=== PATIENT | female | born 1960 | race Caucasian/White ===

== ENCOUNTER 2017-02-26 11:00 | Inpatient (IN) | payer OTHER ==
[2017-01-24 12:31] VITALS: BMI 33.0
--- NOTE | 2017-01-24 13:07 | PAT Medication Instructions ---
Service Date January 24, 2017. Current Home Medication List Alprazolam (Alprazolam Odt), 1 TAB PO HS Cholecalciferol (Vitamin D3), 1 CAP PO HS Ibuprofen (Ibuprofen), 800 MG PO HS Lisinopril/Hctz (Zestoretic 20MG/12.5MG), 2 TAB PO HS Medication Instructions For Your Scheduled Surgery - Check with surgeon for instructions: Ibuprofen (Ibuprofen), 800 MG PO HS - Hold the following medications as scheduled the night before surgery: Lisinopril/Hctz (Zestoretic 20MG/12.5MG), 2 TAB PO HS - Take the following medications as scheduled the night before surgery: Alprazolam (Alprazolam Odt), 1 TAB PO HS Cholecalciferol (Vitamin D3), 1 CAP PO HS If you have any questions please call us at [phone] (Na Boucher PA-C) or [phone] or [phone]
--- NOTE | 2017-01-24 13:49 | DIAGNOSTIC IMAGING REPORT ---
TWO VIEW CHEST CLINICAL HISTORY: Preoperative examination. FINDINGS: PA and lateral chest radiographs are obtained. No prior studies are available for comparison at the time of dictation. The cardiomediastinal silhouette is unremarkable. The lungs and pleural spaces are clear. There is no pneumothorax. The bony thorax appears intact. Degenerative change is seen throughout the thoracic spine. Cholecystectomy clips are identified in the right upper quadrant. IMPRESSION: No active disease in the chest. Electronically signed by: Kashif Gallardo M.D. 01/24/2017 1:47 PM Dictated Date/Time: 01/24/2017 1:47 PM
[2017-01-24 14:34] LABS: BASO % 0.6 %; BASO ABS # 0.03 K/uL (0-0.2); COMPLETE YES; EOS % 3.7 %; HEMATOCRIT 38.3 % (37-47); IG% 0.2 %; LYMPH % 42.5 %; LYMPH ABS # 2.18 K/uL (1.2-3.4); MEAN CELL VOLUME 89.5 fL (80-100); MEAN CORPUSCULAR HEMOGLOBIN 30.8 pg (25-34); MEAN CORPUSCULAR HGB CONC 34.5 g/dl (32-36); MEAN PLATELET VOLUME 10.7 fL (7.4-10.4); MONO % 7.4 %; NEUT % 45.6 %; PLATELET COUNT 295 K/uL (130-400); RED BLOOD COUNT 4.28 M/uL (4.2-5.4); WHITE BLOOD COUNT 5.13 K/uL (4.8-10.8)
[2017-01-24 14:44] LABS: BUN/CREATININE RATIO 24.3 (10-20); CALCIUM 10.5 mg/dl (8.5-10.1); CREATININE 0.99 mg/dl (0.60-1.20); INR 0.9 (0.9-1.1); POTASSIUM 4.2 mmol/L (3.5-5.1)
[2017-01-24 14:46] LABS: MANUAL MICROSCOPIC REQUIRED? NO; REVIEW REQ? NO; URINE APPEARANCE CLEAR (CLEAR); URINE BILIRUBIN NEG (NEG); URINE COLOR YELLOW; URINE EPITHELIAL CELL AUTO >30 /lpf (0-5); URINE NITRITE NEG (NEG); URINE PH 5.5 (4.5-7.5); URINE SPECIFIC GRAVITY 1.011 (1.000-1.030); UROBILINOGEN NEG (NEG); ZZUR CULT IF INDIC CLEAN CATCH NO
[~2017-02-26] VITALS: Ht 160 cm; Wt 84.5 kg
--- NOTE | 2017-02-26 07:07 | History and Physical ---
History & Physical Date Feb 26, 2017. Chief Complaint L HIP PAIN History of Present Illness The patient is a 56 year old female with complaints of GREATER THAN 1 YR L HIP PAIN 04/01. CANNOT TIE SHOES 1 BLOCK WALKING KELLIE.... GROIN TO THIGH LIMPING PAIN W ALL ADLS XRAY CW SEVERE OA OF HIP Additional History Hepatic Disease: No Endocrine Disorder: No Kidney Disease: No Hypertension: Yes Heart Disease: No Bleeding Tendencies: No Infectious Diseases: No Allergies Coded Allergies: Codeine (Verified Allergy, Mild, CHEST PAINS, 01/24/17) Home Medications Scheduled Alprazolam (Alprazolam Odt), 1 TAB PO HS Cholecalciferol (Vitamin D3), 1 CAP PO HS Ibuprofen (Ibuprofen), 800 MG PO HS Lisinopril/Hctz (Zestoretic 20MG/12.5MG), 2 TAB PO HS Physical Examination Skin: warm/dry, no rash Eyes: normal inspection, EOMI, sclerae normal ENT: normal ENT inspection, pharynx normal Head: normocephalic, atraumatic Neck: supple, no adenopathy, trachea midline Respiratory/Chest: lungs clear, normal breath sounds, no respiratory distress Cardiovascular: regular rate, rhythm, no edema, no murmur Abdomen / GI: normal bowel sounds, non tender Back: + pertinent finding (LEGS EQUAL DECREASED ROM FLEX 60 IR 0 PAINFUL ) Neurologic/Psych: no motor/sensory deficits, alert, normal reflexes, oriented x 3 Diagnosis DJD L HIP ASA Classification: ASA Class I Plan of Treatment L SCAR
[~2017-02-26 11:00] MED LIST: ACETAMINOPHEN 500 MG TAB PO SCH; ALPR-413 PO; BUPIVACAINE 0.5 % 5 MG/1 ML PF 10ML VIAL ONE; CEFAZOLIN 2000 MG/60 ML D5W 60 ML IV SCH; CHOL2000 PO; CeleBREX 200 MG CAP PO SCH; DEXAMETHASONE 4 MG TAB PO SCH; FAMOTIDINE 20 MG TAB PO SCH; GABAPENTIN 300 MG CAP PO SCH; IBUP-1105 PO; LACTATED RINGER'S 1000ML 1,000 ML IV SCH; LACTATED RINGER'S 1000ML IV SCH; LISI-787 PO; METOCLOPRAMIDE HCL 10 MG TAB PO SCH; POLYMYXIN B SULFATE 100,000 UNITS in NSS 100ML IR SCH; ROPIVACAINE 5MG/ML 30 ML 150 MG, BUPIVACAINE/EPINEPHR 0.5% MPF 30 ML, KETOROLAC TROMETH... INFIL SCH; VANCOMYCIN INJ 400 MG in NSS 100ML IR SCH
[2017-02-26 11:28] VITALS: BP 142/99; PULSE 81; TEMP 36.8; O2SAT 100; Ht 160 cm; Wt 84.5 kg
[2017-02-26] MEDS ORDERED: ACET-1311 PO (11:28)
[2017-02-26] MEDS ORDERED: FENTANYL CITRATE INJ 50 MCG/1 ML 2 ML VIAL IV PRN (12:00)
[2017-02-26] MEDS ORDERED: EpHEDrine SULFATE INJ 50 MG/ML AMP IV PRN (12:00)
[2017-02-26] MEDS ORDERED: ATROPINE SULFATE 0.1 MG/ML 5ML SYR IV PRN (12:00)
[2017-02-26] MEDS ORDERED: ONDANSETRON INJ 2 MG/ML 2 ML VIAL IV PRN ×2 (12:00→17:30)
--- NOTE | 2017-02-26 12:57 | History & Physical Bridge Note ---
H&P Re-Evaluation Bridge Note: I have examined the patient, reviewed the History & Physical and in the interval since the performance of the History & Physical I have noted the following changes of clinical significance: No changes noted
[2017-02-26] MEDS ORDERED: MIDAZOLAM HCL 1 MG/ML 2ML VIAL ONE ×2 (13:09→16:06)
[2017-02-26] MEDS ORDERED: ORTHO JOINT ANESTHETIC ONE (13:46)
[2017-02-26] MEDS ORDERED: BACITRACIN 50000 UNIT VIAL ONE (13:47)
[2017-02-26] MEDS ORDERED: POVIDONE-IODINE OP SOLN 30 ML BTL ONE (13:47)
[2017-02-26] MEDS: TRANEXAMIC ACID INJ 1,000 MG in SODIUM CHLORIDE 0.9% 100ML 100 ML IV SCH ×2 (15:31→22:10)
[2017-02-26] MEDS ORDERED: PROPOFOL IV EMULSION 10 MG/ML 20 ML VIAL IV ONE (16:50)
[2017-02-26] MEDS ORDERED: PHENYLEPHRINE 100MCG/ML 5ML SYR ONE (16:50)
[2017-02-26] MEDS ORDERED: EpHEDrine SULFATE 50MG/5ML SYR ONE (17:01)
[2017-02-26] MEDS ORDERED: METOCLOPRAMIDE HCL INJ 5 MG/ML 2 ML VIAL IV PRN (17:30)
[2017-02-26] MEDS ORDERED: ALUMINUM/MAGNESIUM/SIMETH (MAALOX MAX) 30 ML UDC PO PRN (17:30)
[2017-02-26] MEDS ORDERED: TRAMADOL HCL 50 MG TAB PO PRN (17:30)
[2017-02-26] MEDS ORDERED: BISACODYL 10 MG SUPP PR PRN (17:30)
[2017-02-26] MEDS ORDERED: DiphenhydrAMINE HCL 50 MG/ML VIAL IV PRN (17:30)
[2017-02-26] MEDS ORDERED: OXYCODONE HCL IR 5 MG TAB (IMMEDIATE RELEASE) PO PRN (17:30)
[2017-02-26] MEDS ORDERED: MoRPHine SULFATE 2 MG/ML CARP IV PRN (17:30)
[2017-02-26] MEDS ORDERED: ZOLPIDEM TARTRATE 5 MG TAB PO PRN (17:30)
[2017-02-26] MEDS ORDERED: MAGNESIUM HYDROXIDE SUSP 30 ML UDC PO PRN (17:30)
[2017-02-26] MEDS ORDERED: SOD PHOSPHATE/SOD BIPHOSPHATE ENEMA 132 ML BTL PR PRN (17:30)
--- NOTE | 2017-02-26 17:30 | [facility] Post Operative Brief Note ---
Immediate Operative Summary Operative Date Feb 26, 2017. Pre-Operative Diagnosis Left hip degenerative joint disease Post-Operative Diagnosis same Procedure(s) Performed Left Total Hip Arthroplasty; Uncemented Surgeon Dr. Derik Luque [employer] Surgeon(s) Gomez Go PA-C Estimated Blood Loss 75ML Findings DJD Specimens A. Left femoral head Complication(s) None Disposition Recovery Room / PACU
--- NOTE | 2017-02-26 18:27 | DIAGNOSTIC IMAGING REPORT ---
SINGLE VIEW PELVIS; SINGLE VIEW LEFT HIP CLINICAL HISTORY: Postoperative examination. FINDINGS: An AP portable view of the hips and pelvis with a crosstable lateral portable view of the left hip are obtained. A bipolar left hip arthroplasty is in near-anatomic alignment. A single cortical lag screw transfixes the acetabular cup. No acute fracture is identified. Mild arthritic change is seen in the right hip. Mild sclerosis is noted in the sacroiliac joints. There are expected postoperative changes overlying the left hip including subcutaneous gas, a surgical drain, and soft tissue swelling. IMPRESSION: Expected postoperative findings status post left hip arthroplasty. No acute fracture is seen. Electronically signed by: Kashif Gallardo M.D. 02/26/2017 6:26 PM Dictated Date/Time: 02/26/2017 6:25 PM
--- NOTE | 2017-02-26 19:06 | Anesthesiology Progress Note ---
Anesthesia Post Op Note Date & Time Feb 26, 2017 at 19:05 Vital Signs Pain Intensity: 0 Vital Signs Past 12 Hours Date Time Temp Pulse Resp B/P (MAP) Pulse Ox O2 Delivery O2 Flow Rate FiO2 02/26/17 18:55 36.5 81 16 99/68 100 Nasal Cannula 2 02/26/17 18:45 71 16 99/65 100 Nasal Cannula 2 02/26/17 18:35 73 16 99/64 100 Nasal Cannula 2 02/26/17 18:25 77 16 102/68 100 Nasal Cannula 2 02/26/17 18:15 75 16 101/70 100 Mask 10 02/26/17 18:05 75 16 100/85 100 Mask 10 02/26/17 17:56 36.6 67 16 115/70 100 Mask 10 02/26/17 11:28 36.8 81 18 142/99 100 Room Air Notes Mental Status: alert / awake / arousable, participated in evaluation Pt Amnestic to Procedure: Yes Nausea / Vomiting: adequately controlled Pain: adequately controlled Airway Patency, RR, SpO2: stable & adequate BP & HR: stable & adequate Hydration State: stable & adequate Neuraxial Anesthesia: was administered, sensory block is resolving Anesthetic Complications: no major complications apparent Pt doing well.
[2017-02-26 19:20] VITALS: BP 101/66; PULSE 73; TEMP 36.4; O2SAT 100
[2017-02-26 19:50] VITALS: BP 109/71; PULSE 74; TEMP 36.3; O2SAT 100
--- NOTE | 2017-02-26 20:14 | OPERATIVE REPORT ---
DATE OF OPERATION: 02/26/2017 PREOPERATIVE DIAGNOSIS: Degenerative arthritis, left hip. POSTOPERATIVE DIAGNOSIS: Same. PROCEDURE: Left total hip replacement. SURGEON: Dr. Luque. FORENSIC ECONOMIST: FAYE Figueredo. ANESTHESIA: Spinal. BLOOD LOSS: 75 mL REPLACEMENT FLUIDS: 1500 mL crystalloid. DRAINS: Hemovac x2. CULTURES: None. COMPLICATIONS: None. COMPONENTS USED: [employer] hip system: Acetabulum size 52, femur size 5 high offset, femoral head 0, neck length 36 mm. NOTE: FAYE Figueredo was present and assisted throughout due to the complicated nature of this case. He helped with preparation and set up, first assisted throughout and personally closed the fascial, subcutaneous and skin layers and applied the postoperative dressing. DESCRIPTION: Following satisfactory spinal, the patient was supine. The left leg was placed in the tractioning device and the right leg in the well leg jose. The left leg was prepared with ChloraPrep and draped sterilely. Following a surgical time-out, an anterior approach was performed in the interval between the sartorius and tensor muscles. The circumflex femoral vessels were identified and ligated and anterior capsulotomy was performed exposing a severely arthritic femoral neck and head. There were large bridging osteophytes. The femoral neck and head were trimmed and removed. The bridging osteophytes were removed. The acetabular self-retraining retractor was placed. Acetabular preparation and reaming was completed and a 52 shell was impacted into an anatomic position, confirmed with fluoroscopy and secured with a screw. Local anesthetic was placed followed by the polyethylene liner. The femur was then placed in a position of external rotation, extension and adduction. Femoral canal was prepared up to the size 5. A trial reduction with a high offset neck and a 0 neck length head showed confucianist of leg lengths and good fit and fill of the proximal canal using fluoroscopic landmarks. The hip was dislocated, the trial component removed. The final implant was placed, the hip was reduced to show a similar position. A Betadine soak was performed. After 3 minutes, the Betadine was irrigated. The capsule was closed with 1 Vicryl interrupted. A drain was then placed. Following irrigation, the fascia was closed with a running suture of 1 Vicryl, the subcutaneous tissues with 1 and 2-0 Vicryl, the skin with a running subcuticular stitch of 3-0 V-Loc. Dermabond and a dry dressing were applied. The patient was returned to her bed in stable condition. I attest to the content of the Intraoperative Record and any orders documented therein. Any exception s are noted below.
[2017-02-26 20:19] VITALS: BP 102/69; PULSE 70; TEMP 36.3; O2SAT 100
[2017-02-26] MEDS ORDERED: ALPRAZOLAM 0.25 MG TAB PO SCH (21:00)
[2017-02-26 21:22] VITALS: BP 104/69; PULSE 75; TEMP 36.4; O2SAT 100
[2017-02-26] MEDS ORDERED: CHOLECALCIFEROL 1000 INTER.UNIT TAB PO SCH (21:30)
[2017-02-26] MEDS ORDERED: SENNA 8.6 MG TAB PO SCH (21:30)
[2017-02-26] MEDS ORDERED: LISINOPRIL/HCTZ 20/12.5MG TAB PO SCH (21:30)
[2017-02-26] MEDS: D5W AND 1/2NSS + 20MEQ KCL 1,000 ML IV SCH (21:44)
[2017-02-26] MEDS: KETOROLAC TROMETHAMINE 30 MG/ML VIAL IV. SCH (22:13)
[2017-02-26] MEDS: ACETAMINOPHEN 500 MG TAB PO SCH (22:13)
[2017-02-26] MEDS: ASPIRIN 81 MG ECTAB PO SCH (22:14)
[2017-02-26 22:29] VITALS: BP 110/75; PULSE 77; TEMP 36.3; O2SAT 99
[2017-02-26] MEDS: CEFAZOLIN IV 2,000 MG in DEXTROSE 5% 50ML 50 ML IV SCH (23:55)
[2017-02-27] VITALS (7 sets, daily range): BP systolic 106–142; BP diastolic 76–85; PULSE 66–70; TEMP 36.4–36.6; O2SAT 96–100
[2017-02-27] MEDS ORDERED: TRANEXAMIC ACID INJ 1,000 MG in SODIUM CHLORIDE 0.9% 100ML 100 ML IV SCH (00:30)
[2017-02-27] MEDS: KETOROLAC TROMETHAMINE 30 MG/ML VIAL IV. SCH ×2 (05:04→09:51)
[2017-02-27] MEDS: ACETAMINOPHEN 500 MG TAB PO SCH ×2 (05:04→13:36)
[2017-02-27 05:37] LABS: HEMATOCRIT 32.8 % (37-47); MEAN CELL VOLUME 89.6 fL (80-100); MEAN CORPUSCULAR HEMOGLOBIN 30.3 pg (25-34); MEAN CORPUSCULAR HGB CONC 33.8 g/dl (32-36); MEAN PLATELET VOLUME 10.2 fL (7.4-10.4); PLATELET COUNT 262 K/uL (130-400); RED BLOOD COUNT 3.66 M/uL (4.2-5.4); WHITE BLOOD COUNT 9.24 K/uL (4.8-10.8)
[2017-02-27 06:01] LABS: BUN/CREATININE RATIO 13.4 (10-20); CALCIUM 9.5 mg/dl (8.5-10.1); CREATININE 1.1 mg/dl (0.60-1.20); POTASSIUM 4.8 mmol/L (3.5-5.1)
[2017-02-27 06:14] LABS: BASO % 0.1 %; BASO ABS # 0.01 K/uL (0-0.2); COMPLETE YES; IG% 0.1 %; LYMPH % 7.9 %; LYMPH ABS # 0.73 K/uL (1.2-3.4); NEUT % 85.9 %
[2017-02-27] MEDS: CEFAZOLIN IV 2,000 MG in DEXTROSE 5% 50ML 50 ML IV SCH (07:30)
[2017-02-27] MEDS: D5W AND 1/2NSS + 20MEQ KCL 1,000 ML IV SCH (07:30)
--- NOTE | 2017-02-27 07:36 | DIAGNOSTIC IMAGING REPORT ---
INTRAOPERATIVE RADIOGRAPHS CLINICAL HISTORY: Left hip arthroplasty procedure. Fluoroscopy time: 12 seconds. FINDINGS: 2 spot fluoroscopic views of left hip are presented. A bipolar left hip arthroplasty is in near-anatomic alignment. A single cortical lag screw transfixes the acetabular cup. There is no evidence of acute fracture on these fluoroscopic images. IMPRESSION: Intraoperative images from a left hip arthroplasty procedure as above. Electronically signed by: Kashif Gallardo M.D. 02/26/2017 5:34 PM Dictated Date/Time: 02/26/2017 5:33 PM
--- NOTE | 2017-02-27 07:46 | Orthopedic Progress Note ---
Orthopedic Progress Note Date of Service Feb 27, 2017. Subjective Post OP Day: 1 Reports: feeling well, pain controlled w PO medications, Denies: complaints, SOB , nausea / vomiting, light headedness Objective calves soft nontender, N/V intact, hip located, dressing C/D/I, A&O x3, toes mobile Date Time Temp Pulse Resp B/P (MAP) Pulse Ox O2 Delivery O2 Flow Rate FiO2 02/27/17 04:10 36.4 67 16 112/77 (89) 100 Room Air 02/26/17 23:51 Nasal Cannula 2.0 02/26/17 22:29 36.3 77 16 110/75 (87) 99 Nasal Cannula 2.0 02/26/17 21:22 36.4 75 16 104/69 (81) 100 Nasal Cannula 2.0 02/26/17 20:19 36.3 70 16 102/69 (80) 100 Nasal Cannula 2.0 02/26/17 19:50 36.3 74 16 109/71 (84) 100 Nasal Cannula 2.0 02/26/17 19:20 Nasal Cannula 2.0 02/26/17 19:20 100 Nasal Cannula 2.0 02/26/17 19:20 36.4 73 20 101/66 (78) 100 Nasal Cannula 2.0 02/26/17 18:55 36.5 81 16 99/68 100 Nasal Cannula 2 02/26/17 18:45 71 16 99/65 100 Nasal Cannula 2 02/26/17 18:35 73 16 99/64 100 Nasal Cannula 2 02/26/17 18:25 77 16 102/68 100 Nasal Cannula 2 02/26/17 18:15 75 16 101/70 100 Mask 10 02/26/17 18:05 75 16 100/85 100 Mask 10 02/26/17 17:56 36.6 67 16 115/70 100 Mask 10 02/26/17 11:28 36.8 81 18 142/99 100 Room Air Laboratory Results 24 Hours: Test 02/27/17 05:05 White Blood Count 9.24 K/uL Red Blood Count 3.66 M/uL Hemoglobin 11.1 g/dL Hematocrit 32.8 % Mean Corpuscular Volume 89.6 fL Mean Corpuscular Hemoglobin 30.3 pg Mean Corpuscular Hemoglobin Concent 33.8 g/dl Platelet Count 262 K/uL Mean Platelet Volume 10.2 fL Neutrophils (%) (Auto) 85.9 % Lymphocytes (%) (Auto) 7.9 % Monocytes (%) (Auto) 6.0 % Eosinophils (%) (Auto) 0.0 % Basophils (%) (Auto) 0.1 % Neutrophils # (Auto) 7.94 K/uL Lymphocytes # (Auto) 0.73 K/uL Monocytes # (Auto) 0.55 K/uL Eosinophils # (Auto) 0.00 K/uL Basophils # (Auto) 0.01 K/uL Assessment & Plan Assessment: POD 1 SCAR Plan: HOME TODAY WILL NEED [facility] Inhouse Planning Pain Management: Celebrex, PO Tylenol, Oxy IR DVT Prophylaxis: TEDs, SCDs, ASA Discharge Planning Discharge Planning: home with home health Pain Management: Celebrex, PO Tylenol, Oxy IR DVT Prophylaxis: TEDs, ASA
[2017-02-27] MEDS ORDERED: CLB200 PO (08:16)
[2017-02-27] MEDS ORDERED: ONDA8TAB6 PO (08:16)
[2017-02-27] MEDS ORDERED: ASPEC81 PO (08:16)
[2017-02-27] MEDS ORDERED: ACET-1138 PO (08:16)
[2017-02-27] MEDS ORDERED: RXC5 PO (08:16)
[2017-02-27] MEDS ORDERED: SNK PO (08:16)
--- NOTE | 2017-02-27 08:17 | Discharge Instructions ---
Discharge Instructions Date of Service Feb 27, 2017. Admission Reason for Admission: Left Hip Degenerative Arthritis Discharge Discharge Diagnosis / Problem: sp left total hip arthroplasty Discharge Goals Goal(s): Decrease discomfort, Improve function, Increase independence Activity Recommendations Activity Limitations: per Instructions/Follow-up section . Instructions / Follow-Up Instructions / Follow-Up ACTIVITY RECOMMENDATIONS: SELF CARE INSTRUCTIONS AFTER TOTAL HIP REPLACEMENT : Direct Anterior Approach Until the incision and soft tissues around your hip have healed, there is a possibility that the hip prosthesis could dislocate. A. Hip flexion ( Up & Down out of chair or steps ) may be difficult. This is normal. B. Numbness in front of the thigh is also normal for a few weeks. C. Use hand rails when walking on stairs. D. Wear low heeled shoes with non-slip soles. E. Be sure that your floors are free of things that could trip you - throw rugs , electrical cords, small objects. Avoid wet and waxed floors, especially with crutches and canes. F. Try to walk several times a day with rest periods between. G. Continue with all the exercises taught to you in the hospital. Again, make walking a part of your daily routine. SPECIAL CARE INSTRUCTIONS: VERY IMPORTANT TO READ AND REVIEW A. You may still be at risk for phlebitis and blood clots. 1. Wear surgical stockings (ERICA hose) for 2 weeks after surgery to improve circulation and reduce swelling. 2. Take Aspirin 81mg twice daily for 4 weeks or as directed by your doctor. This is your blood thinner. 3. High risk patients may be prescribed a stronger blood thinner if necessary. 4. If you are on Coumadin normally, your family doctor/osteopathic resident should monitor your blood work. Expect a phone call the day of or the day after bloodwork is drawn to adjust your dosage. B. You must take antibiotics before having dental work, bladder, bowel and other surgery. Your doctor will provide you with a permanent card to carry describing precautions. C. Call [facility] if you have a fever, redness or swelling around the incision, cloudy drainage from incision, or sudden increase in pain in your hip, not relieved by your regular pain medication. D. Please call the office at if you have any concerns or questions about your operation or recovery. * YOU MAY SHOWER, NO TUB BATHS UNTIL CLEARED BY YOUR DOCTOR. - Keep an extra close eye on the top portion of your incision. Be sure to keep clean & dry. * WEAR ERICA HOSE 20 HOURS PER DAY FOR 2 WEEKS. * YOU MAY PROGRESS FROM A WALKER, TO A CANE, TO INDEPENDENT AT YOUR OWN PACE. * MOST PATIENTS WILL HAVE HOME NURSING FOR THERAPY. IF YOU DECIDE TO DO OUTPATIENT PHYSICAL THERAPY, PLEASE SCHEDULE THIS 3 TIMES PER WEEK. * DERMABOND Prineo- This is a mesh tape dressing that is covered with glue. It should remain in place until the incision is properly healed, usually 10-14 days. This dressing is designed to naturally slough off. You may trim the excess mesh tape as it peels off. Incision may be briefly wet in a shower. Dry immediately by blotting with a clean, dry towel. Do not bath or swim until instructed by your doctor. Do not scratch, rub, or pick at the dressing. Do not apply any topical ointments or lotions until dressing is completely removed and/or instructed by your doctor. There may be a small piece of suture material at one end of your incision. Do not pull or trim this. If it is bothersome or catching on clothing, you may cover it with a band-aid. FOLLOW UP VISIT: If appointment is not already scheduled: Please call [facility] to make a follow-up appointment for 2 weeks after your surgery at . Current Hospital Diet Patient's current hospital diet: Regular Diet Discharge Diet Recommended Diet: Regular Diet Procedures Procedures Performed: Left Total Hip Arthroplasty;direct anterior approach Uncemented Pending Studies Studies pending at discharge: no Medical Emergencies . Who to Call and When: Medical Emergencies: If at any time you feel your situation is an emergency, please call 911 immediately. . Non-Emergent Contact Non-Emergency issues call your: Surgeon . "Provider Documentation" section prepared by Hazel Martínez. . VTE Core Measure Inpt VTE Proph given/why not?: Other Anticoagulation, T.E.DMegan Stockings, SCD's [place] Drug Monitoring Program Search Results: patient reviewed within database, no issues identified
--- NOTE | 2017-02-27 08:34 | Anesthesiology Progress Note ---
Anesthesia Post Op Note Date & Time Feb 27, 2017 at 08:34 Vital Signs Vital Signs Past 12 Hours Date Time Temp Pulse Resp B/P (MAP) Pulse Ox O2 Delivery O2 Flow Rate FiO2 02/27/17 08:12 Room Air 02/27/17 08:04 100 Room Air 02/27/17 07:53 36.4 66 14 142/84 (103) 100 Room Air 02/27/17 04:10 36.4 67 16 112/77 (89) 100 Room Air 02/26/17 23:51 Nasal Cannula 2.0 02/26/17 22:29 36.3 77 16 110/75 (87) 99 Nasal Cannula 2.0 02/26/17 21:22 36.4 75 16 104/69 (81) 100 Nasal Cannula 2.0 Notes Mental Status: alert / awake / arousable, participated in evaluation Pt Amnestic to Procedure: Yes Nausea / Vomiting: adequately controlled Pain: adequately controlled Airway Patency, RR, SpO2: stable & adequate BP & HR: stable & adequate Hydration State: stable & adequate Neuraxial Anesthesia: was administered, sensory block resolved Anesthetic Complications: no major complications apparent
[2017-02-27] MEDS ORDERED: PANTOprazole SOD 40 MG TAB PO SCH (09:00)
[2017-02-27] MEDS ORDERED: MULTIVITAMIN TAB PO SCH (09:00)
[2017-02-27] MEDS: ASPIRIN 81 MG ECTAB PO SCH (09:50)
--- NOTE | 2017-02-28 13:42 | DISCHARGE SUMMARY ---
DISCHARGE DIAGNOSIS: Degenerative joint disease, left hip. SECONDARY DIAGNOSIS: Hypertension. CONSULTS: None. COMPLICATIONS: None. PROCEDURES: Left total hip arthroplasty performed by Dr. Derik Luque on 02/26/2017. BRIEF HISTORY: As dictated in the history and physical. HOSPITAL SUMMARY: The patient was admitted on the above date and had the above-noted surgery performed which she tolerated well. On her first postoperative day, she was feeling well and pain was controlled. She had no complaints. Calves were soft, nontender. Neurovascularly intact. Hip was located. Dressing was clean, dry and intact. Toes were mobile. Vital signs were stable. She was afebrile and hemoglobin was 11.1. She was started on physical therapy protocol and continued on DVT prophylaxis and pain management. She was progressing well with her physical therapy and remaining stable, and it was felt she could be discharged to home on 02/27/2017 with home health services. For further review, please see chart. LAB AND X-RAY DATA: As per chart. DISCHARGE INSTRUCTIONS: The patient was discharged to home in satisfactory condition on 02/27/2017. DIET: Regular. ACTIVITY: Follow SCAR instruction sheets and special care instructions as noted. Follow up with Dr. Derik Luque in 2 weeks. The patient to call for appointment if one has not been made for you. DISCHARGE MEDICATIONS: New prescriptions; acetaminophen 1000 mg p.o. q. 8 hours, aspirin 81 mg p.o. b.i.d., Celebrex 200 mg p.o. b.i.d., Zofran 8 mg p.o. q. 8 hours p.r.n. nausea, oxycodone 5-10 mg p.o. q. 4 hours p.r.n., senna 17.2 mg p.o. at bedtime. Resume taking alprazolam 1 tab p.o. at bedtime, vitamin D3 one cap p.o. at bedtime, lisinopril/hydrochlorothiazide 20/12.5 two tabs p.o. at bedtime. Stop taking original acetaminophen dosing and stop taking ibuprofen.
[2017-02-28] MEDS ORDERED: CeleBREX 200 MG CAP PO SCH (21:00)
== END 2017-02-27 14:24 | disposition home health service (06) | DRG 470 ==
LOC: C.ACU 11:00 → C.3E 12:00 → ENRESERV 18:40
PROVIDERS: ADMIT Orthopaedic Surgery; ATTEND Orthopaedic Surgery
PROC: 0SRB04A Replacement of Left Hip Joint with Ceramic on Polyethylene Synthetic Substitute, Uncemented, Open Approach (ICD-10-PCS; principal; 2017-02-26 13:00)
DX: M16.12 Unilateral primary osteoarthritis, left hip (principal); I10 Essential (primary) hypertension; F41.9 Anxiety disorder, unspecified; E66.9 Obesity, unspecified; Z68.33 Body mass index [BMI] 33.0-33.9, adult; Z79.899 Other long term (current) drug therapy

== ENCOUNTER 2021-08-07 08:07 | Inpatient (IN) ==
--- NOTE | 2021-07-11 15:50 | PAT Medication Instructions ---
Medication Instructions Date of Service July 11, 2021 Home Medications Tylenol Headache Otc 1 tab PO DAILY PRN albuterol sulfate 90 mcg/actuation aerosol inhaler 2 puff INHALATION Q6H PRN ascorbic acid (vitamin C) 1,000 mg tablet (Vitamin C With Tiffany Hips) 1 g PO QAM cholecalciferol (vitamin D3) 50 mcg (2,000 unit) capsule (Vitamin D3) 50 mcg PO QAM glucosamine sulf dipot chlr,msm,chond 550 mg-C 30 mg-david 1 mg capsule (Glucosamine Chondroitin) 1 cap PO QAM ibuprofen 200 mg capsule 400 mg PO Q6H PRN lisinopril 20 mg-hydrochlorothiazide 12.5 mg tablet 2 tab PO QPM zinc 50 mg tablet 50 mg PO QAM ASK your surgeon for instructions ibuprofen 200 mg capsule 400 mg PO Q6H PRN STOP taking 2 weeks before surgery (or as soon as possible if surgery is within 2 weeks) glucosamine sulf dipot chlr,msm,chond 550 mg-C 30 mg-david 1 mg capsule (Glucosamine Chondroitin) 1 cap PO QAM DO NOT take the morning of surgery ascorbic acid (vitamin C) 1,000 mg tablet (Vitamin C With Tiffany Hips) 1 g PO QAM cholecalciferol (vitamin D3) 50 mcg (2,000 unit) capsule (Vitamin D3) 50 mcg PO QAM zinc 50 mg tablet 50 mg PO QAM Take morning of surgery With a small sip of water, OTHERWISE NOTHING TO EAT OR DRINK AFTER MIDNIGHT: Tylenol Headache Otc 1 tab PO DAILY PRN (okay to take up to 4 hours prior to surgery if needed) albuterol sulfate 90 mcg/actuation aerosol inhaler 2 puff INHALATION Q6H PRN (use if needed; please bring rescue inhaler with you to hospital day of surgery if possible) Take evening before surgery Tylenol Headache Otc 1 tab PO DAILY PRN (if needed) albuterol sulfate 90 mcg/actuation aerosol inhaler 2 puff INHALATION Q6H PRN (if needed) lisinopril 20 mg-hydrochlorothiazide 12.5 mg tablet 2 tab PO QPM Other Notes If you have any questions please call us at [phone] or [phone] or [phone] or [phone]
--- NOTE | 2021-07-20 12:00 | Anesthesiology Consultation ---
Date of Service July 20, 2021 Assessment & Plan (1) Encounter for pre-operative examination: - surgeon ordered medical clearance 07/24/2021. - RUE limb restriction. - COVID screening: Per assessment on 07/20/2021: Travel screen negative, no known COVID-19 positive contacts. Surgeon arranging preop COVID testing, scheduled 08/03/2021 [facility]. Awaiting results. Chart Review Chart Review: Acceptable Risk for Surgery (pending PCP pre-op evaluation) and Patient seen in Pre Admission Testing Teaching & Discussion Pre-Anesthesia Teaching/Discussion Notes: Instructed NPO after midnight before surgery, except medications with 15 cc of water. Medication instructions provided according to the PAT guidelines. History Surgery Operation Date: 08/07/21 10:05 Proposed Procedures p L2-S1 Decompression and Fusion, Spinal Cord Monitoring - Willy Camarillo DO Height/Weight Height: 5 ft 1.5 in Weight: 78.1 kg Allergies Allergy/AdvReac Type Severity Reaction Status Date / Time tramadol AdvReac Severe N/V Verified 07/18/21 10:34 codeine AdvReac Mild Chest pain Verified 07/18/21 10:34 Medications Home Medications Medication Instructions Recorded Confirmed Last Taken Tylenol Headache Otc 1 tab PO DAILY PRN 07/06/21 07/06/21 Unknown albuterol sulfate 90 mcg/actuation 2 puff INHALATION Q6H PRN 07/06/21 07/06/21 Unknown aerosol inhaler ascorbic acid (vitamin C) 1,000 mg 1 g PO QAM 07/06/21 07/06/21 Unknown tablet (Vitamin C With Tiffany Hips) cholecalciferol (vitamin D3) 50 50 mcg PO QAM 07/06/21 07/06/21 Unknown mcg (2,000 unit) capsule (Vitamin D3) glucosamine sulf dipot 1 cap PO QAM 07/06/21 07/06/21 Unknown chlr,msm,chond 550 mg-C 30 mg-david 1 mg capsule (Glucosamine Chondroitin) ibuprofen 200 mg capsule 400 mg PO Q6H PRN 07/06/21 07/06/21 Unknown lisinopril 20 2 tab PO QPM 07/06/21 07/06/21 Unknown mg-hydrochlorothiazide 12.5 mg tablet zinc 50 mg tablet 50 mg PO QAM 07/06/21 07/06/21 Unknown doxycycline monohydrate 100 mg PO BID 07/20/21 07/20/21 Unknown methylprednisolone 4 mg PO DAILY 07/20/21 07/20/21 Unknown Past Medical History Medical History (Updated 07/21/21 @ 08:31 by Lisa Gross PA-C) Allergic symptoms yearly in fall (nasal congestion, cough and ear itching) currently on doxycycline and Medrol dose pack by PCP for current flare per pt Arthritis Bronchitis Often develops after allergy symptoms most recent inhaler use winter 2019 Cancer Right arm melanoma (2018)- traveled to right axillary lymph node s/p immunotherapy, Follows with Dr. Ordonez, ([facility]/[place]) and Dr. Fernandes ([place]) *RUE limb restriction* Cardiac murmur In childhood, resolution per pt GERD (gastroesophageal reflux disease) Controlled, stable History of COVID-19 Dx 04/2020 > symptoms at time of: mild cough, extreme fatigue > resolved Hypertension well controlled, stable Migraine Hx Temporomandibular joint disorder + clicking, no locking Patient denies h/o stroke, seizures, heart attack, heart failure, DM, blood clots or blood transfusions. Exercise / Class Metabolic Activity III < 4 Walking/Shop/Light housework (no CP or SOB) Past Family History Family History Other No known health problems Past Surgical History Surgical History History of back surgery Discectomy (1983) History of back surgery Fatty tumor removal History of carpal tunnel release R/L History of section History of cholecystectomy History of surgery on arm RUE melanoma excision with lymph node removal History of tonsillectomy History of total hip arthroplasty Left Past Anesthesia History No Hx of Anesthesia Complications and No Family Hx of Anesthesia Complications History of PONV No Hx of PONV and No Hx of Motion Sickness Social History Smoking Status: Never smoker Do You Dip or Chew Tobacco: No Hx Alcohol Use: No Hx Substance Use: No Review of Systems Light snoring per , denies witnessed apneas. Denies sleep studies. She reports is currently on Medrol dose pack and doxycycline Rx'ed by her PCP earlier this week for usual allergy symptoms of nasal congestion, cough and ear itching; expresses this regimen is to avoid developing bronchitis. Reports mild improvement at this time. Following with PCP. Aware to call surgeon's office and anesthesia if persistent symptoms/no improvement regarding planned surgery. Patient denies chest pain, shortness of breath, dyspnea on exertion, fever, chills, wheezing, or palpitations. Physical Exam Vital Signs Vitals BP 142/92 P 78 TEMP 98.6 SP02 99% on RA RESP 16 Physical Full cervical extension range of motion without pain TMD 3.5 finger breaths Mallampati Score 2 Dentition: intact, missing teeth sides upper and lower, right front tooth with veneer, left front/side lower and left front upper chipped teeth, denies caps/crowns, implants or bridges Lungs: normal respiratory effort. Clear throughout to auscultation, no adventitious breath sounds Cardiac: regular rate and rhythm, no murmurs noted Carotid arteries: negative bruit bilat Extremities: no distal extremity edema Lab Results Anesthesia Preop Results Results Anesthesia Widget: WBC 9.58 K/uL (4.8-10.8) 07/20/21 Hgb 13.2 g/dL (12.0-16.0) 07/20/21 Hct 39.2 % (37-47) 07/20/21 Plt 274 K/uL (130-400) 07/20/21 Na 140 mmol/L (136-145) 07/20/21 K 4.3 mmol/L (3.5-5.1) 07/20/21 Cl 104 mmol/L (98-107) 07/20/21 CO2 30 mmol/L (21-32) 07/20/21 BUN 16 mg/dl (7-18) 07/20/21 Creat 0.86 mg/dl (0.6-1.2) 07/20/21 Glucose Level 100 mg/dl (70-99) H 07/20/21 PT 9.6 Seconds (9.0-12.0) 07/20/21 PTT 24.5 Seconds (21.0-31.0) 07/20/21 INR 0.9 (0.9-1.1) 07/20/21 Urine Color Yellow 07/20/21 Urine Appearance Clear (Clear) 07/20/21 Urine pH 7.0 (4.5-7.5) 07/20/21 Urine Specific Flora 1.008 (1.000-1.030) 07/20/21 Urine Protein Negative (Negative) 07/20/21 Urine Glucose (UA) Negative (Negative) 07/20/21 Urine Ketones Negative (Negative) 07/20/21 Urine Blood Negative (Negative) 07/20/21 Urine Nitrite Negative (Negative) 07/20/21 Urine Bilirubin Negative (Negative) 07/20/21 Urine Urobilinogen Negative (Negative) 07/20/21 Urine Leukocyte Esterase Negative (Negative) 07/20/21 Blood Type O Positive 07/20/21 Antibody Screen NEGATIVE 07/20/21 Testing Electrocardiogram Date: 07/20/21 Normal sinus rhythm, rate 73 bpm. Normal ECG When compared with ECG of 24-JAN-2017 13:19, No significant change was found Confirmed by Francesco Ellis. Chest X-Ray Date: 07/20/21 No acute process.
--- NOTE | 2021-08-04 08:33 | History & Physical Report ---
Date of Service August 04, 2021 Assessment & Plan (1) Neurogenic claudication due to lumbar spinal stenosis: Plan: Assessment lumbar spinal stenosis with neurogenic claudication progressive neuro deficit including weakness and sensory loss. Plan at this time patient's MRI demonstrates severe multilevel spinal stenosis with gross neural compression. She understands the course of nonoperative care is progressive deficit we are recommending lumbar decompression and fusion L2-S1. Risk benefits pros cons and alternatives were outlined in detail. Risk include but not limited to anesthesia blindness stroke paralysis nerve damage blood loss requiring trans fusion infection requiring reoperation passively marked improvement of her neurogenic claudication and in time improvement over strength and neuro deficits. History of Present Illness Chief Complaint: Back and bilateral leg pain with weakness Primary Care Provider: Medina Gong This is a 61-year-old female presents with chronic persistent lumbosacral back pain rating down the left greater than right lower extremities. It does extend to the foot. This has been progressive for years but markedly decline over the past several months. She cannot stand or walk any distance. She can only stand and ambulate for a few feet before the pain becomes severe. She had a chronic extensive course of physical therapy and pain management without resolution. Allergies Allergy/AdvReac Type Severity Reaction Status Date / Time tramadol AdvReac Severe N/V Verified 07/18/21 10:34 codeine AdvReac Mild Chest pain Verified 07/18/21 10:34 Home Medications Medication Instructions Recorded Confirmed Type Tylenol Headache Otc 1 tab PO DAILY PRN 07/06/21 07/06/21 History albuterol sulfate 90 mcg/actuation 2 puff INHALATION Q6H PRN 07/06/21 07/06/21 History aerosol inhaler ascorbic acid (vitamin C) 1,000 mg 1 g PO QAM 07/06/21 07/06/21 History tablet (Vitamin C With Tiffany Hips) cholecalciferol (vitamin D3) 50 50 mcg PO QAM 07/06/21 07/06/21 History mcg (2,000 unit) capsule (Vitamin D3) glucosamine sulf dipot 1 cap PO QAM 07/06/21 07/06/21 History chlr,msm,chond 550 mg-C 30 mg-david 1 mg capsule (Glucosamine Chondroitin) ibuprofen 200 mg capsule 400 mg PO Q6H PRN 07/06/21 07/06/21 History lisinopril 20 2 tab PO QPM 07/06/21 07/06/21 History mg-hydrochlorothiazide 12.5 mg tablet zinc 50 mg tablet 50 mg PO QAM 07/06/21 07/06/21 History doxycycline monohydrate 100 mg PO BID 07/20/21 07/20/21 History methylprednisolone 4 mg PO DAILY 07/20/21 07/20/21 History Past Med/Surg History Medical History (Updated 08/04/21 @ 08:32 by Willy Camarillo, ) Allergic symptoms yearly in fall (nasal congestion, cough and ear itching) currently on doxycycline and Medrol dose pack by PCP for current flare per pt Arthritis Bronchitis Often develops after allergy symptoms most recent inhaler use winter 2019 Cancer Right arm melanoma (2018)- traveled to right axillary lymph node s/p immunotherapy, Follows with Dr. Ordonez, ([facility]/[place]) and Dr. Fernandes ([place]) *RUE limb restriction* Cardiac murmur In childhood, resolution per pt GERD (gastroesophageal reflux disease) Controlled, stable History of COVID-19 Dx 04/2020 > symptoms at time of: mild cough, extreme fatigue > resolved Hypertension well controlled, stable Migraine Hx Temporomandibular joint disorder + clicking, no locking Surgical History History of back surgery Discectomy (1983) History of back surgery Fatty tumor removal History of carpal tunnel release R/L History of section History of cholecystectomy History of surgery on arm RUE melanoma excision with lymph node removal History of tonsillectomy History of total hip arthroplasty Left Family History Other No known health problems Social History (Updated 07/06/21 @ 09:42 by Amy Barrow, MICKEY) Smoking Status: Never smoker Second Hand Exposure: Yes (KIDS SMOKE); Hx Alcohol Use: No Hx Substance Use: No Preferred Language: Yoruba Communication Ability: Effective Route Agent Required: No Beliefs That Will Affect Care: None Current Living Situation: Spouse current occupational status: employed current occupation: [employer] Feels Safe at Home: Yes Assistive Devices: Glasses Physical Exam Physical Exam: On physical exam she is obvious distress. She is able to stand for a few minutes before she must sit. She exhibits a 4- out of 5 left extensor hallucis longus dorsiflexion compared to 5 5 on the right. There is decrease in sensation along the left lower extremity compared to the right.
[~2021-08-07 08:07] MED LIST changes: -ALPR-413 PO; -BUPIVACAINE 0.5 % 5 MG/1 ML PF 10ML VIAL ONE; -CEFAZOLIN 2000 MG/60 ML D5W 60 ML IV SCH; -CHOL2000 PO; -DEXAMETHASONE 4 MG TAB PO SCH; -FAMOTIDINE 20 MG TAB PO SCH; -GABAPENTIN 300 MG CAP PO SCH; +GABAPENTIN 600 MG DOSE PO SCH; -IBUP-1105 PO; -LACTATED RINGER'S 1000ML 1,000 ML IV SCH; -LACTATED RINGER'S 1000ML IV SCH; -LISI-787 PO; +LR 15ML/HR IV SCH; -METOCLOPRAMIDE HCL 10 MG TAB PO SCH; -POLYMYXIN B SULFATE 100,000 UNITS in NSS 100ML IR SCH; -ROPIVACAINE 5MG/ML 30 ML 150 MG, BUPIVACAINE/EPINEPHR 0.5% MPF 30 ML, KETOROLAC TROMETH... INFIL SCH; -VANCOMYCIN INJ 400 MG in NSS 100ML IR SCH; +ceFAZolin 2000MG 2,000 MG/15 ML SYR IV SCH
[2021-08-07] MEDS ORDERED: fentaNYL citrate 100 MCG/2 ML VIAL ONE (08:19)
[2021-08-07] MEDS ORDERED: MIDAZOLAM HCL 1 MG/ML 2ML VIAL ONE (08:19)
--- NOTE | 2021-08-07 09:36 | History & Physical Bridge Note ---
Date of Service August 07, 2021 History & Physical Bridge Note I have examined the patient, reviewed the History & Physical and in the interval since the performance of the History & Physical I have noted the following changes of clinical significance: no changes noted
[2021-08-07] MEDS ORDERED: BUPIVACAINE 0.5 % 5 MG/1 ML MPF 30ML VIAL ONE (09:53)
[2021-08-07] MEDS ORDERED: EPINEPHrine INJ 1 MG/ML AMP ONE (09:53)
[2021-08-07] MEDS ORDERED: HYDROmorphone INJ 2 MG/ML SYR/VIAL ONE (10:46)
[2021-08-07] MEDS ORDERED: LIDOCAINE 2% 2 ML VIAL/AMP(20MG/ML) INFIL ONE (10:48)
[2021-08-07] MEDS ORDERED: LARYING-O-JET KIT (LTA) ONE (10:48)
[2021-08-07] MEDS ORDERED: ePHEDrine sulfate 50 MG/ML SYR ONE ×2 (10:48→12:39)
[2021-08-07] MEDS ORDERED: ONDANSETRON INJ 2 MG/ML 2 ML VIAL ONE (10:48)
[2021-08-07] MEDS ORDERED: GLYCOPYRROLATE 0.2 MG/ML VIAL ONE (10:48)
[2021-08-07] MEDS ORDERED: DEXAMETHASONE SOD INJ 4 MG/ML VIAL ONE (10:48)
[2021-08-07] MEDS ORDERED: PROPOFOL IV EMULSION 10 MG/ML 20 ML VIAL IV ONE (10:48)
[2021-08-07] MEDS ORDERED: NEOSTIGMINE METHYLSULFATE 1 MG/ML 10ML VIAL ONE (10:48)
[2021-08-07] MEDS ORDERED: ROCURONIUM BROMIDE 10 MG/ML 5 ML VIAL IV ONE (10:48)
[2021-08-07] MEDS ORDERED: PHENYLEPHRINE 100MCG/ML 5ML SYR ONE (10:48)
[2021-08-07] MEDS ORDERED: PROMETHAZINE HCL 6.25 MG in SODIUM CHLORIDE 0.9% 50 ML IV PRN (11:53)
[2021-08-07] MEDS ORDERED: HYDROmorphone INJ 2 MG/ML SYR/VIAL IV PRN (11:53)
[2021-08-07] MEDS ORDERED: ONDANSETRON INJ 2 MG/ML 2 ML VIAL IV PRN (11:53)
[2021-08-07] MEDS ORDERED: ePHEDrine sulfate 50 MG/ML AMP IV PRN (11:53)
[2021-08-07] MEDS ORDERED: fentaNYL citrate 100 MCG/2 ML VIAL IV PRN (11:53)
[2021-08-07] MEDS ORDERED: ATROPINE SULFATE 0.1 MG/ML 10ML SYR IV PRN (11:53)
[2021-08-07] MEDS ORDERED: FLOSEAL HEMOSTATIC MATRIX 10ML TOP ONE (12:59)
--- NOTE | 2021-08-07 13:05 | Operative Report ---
Post Operative Report Pre & Post Diagnosis Operation Date: 08/07/21 10:05 Pre-Op Diagnosis: Neurogenic claudication due to lumbar spinal stenosis Post-Op Diagnosis: Neurogenic claudication due to lumbar spinal stenosis I identified the patient and participated in the time-out.: Yes Procedure Operation Date: 08/07/21 10:05 Actual Procedures #1 lumbar decompression with bilateral medial facetectomies and foraminotomies L2-3, L3-4, L4-5 and L5-S1. #2 posterior spinal fusion L2-3, L3-4, L4-5 and L5- S1. #3 placement posterior segmental instrumentation L2-S1. #4 interbody fusion L3-L4 L4-5. #5 placement peek cage 9 x 22 mm at L3-L4 and L4-L5. #6 placement locally harvested morselized autograft in the posterior gutters. #7 placement of infuse collagen sponge, and master graft in the posterior gutters and I factor in the interbody space. Surgeon Willy Camarillo, Bus Driver Supervisor Adriana Arndt Estimated Blood Loss 250 Findings Consistent with Post-Op Diagnosis Specimens None Indications This is a 61-year-old female who presents above-mentioned diagnosis after failing course of nonoperative care she is here for the above-mentioned seizure. Description of Procedure Patient was met with identified informed consent obtained. Patient was then taken to the operative suite underwent an patient placed in a prone position the Vicente table total spine frame. All bony prominences well-padded eyes inspected to ensure no external pressure placed upon the. This point the lumbar spine was prepped and draped in normal sterile fashion. Sharp dissection with the assistance of Bovie cautery was performed down to and exposing the lamina and transverse processes of L2 L3-L4-L5 and sacral ala bilaterally. From a caudal cephalad fashion a complete laminectomy of L5 L4 L3 and L2 was performed occluding bilateral medial facetectomies and foraminotomies addressing severe spinal stenosis. Pedicle screws then placed in L2 L3-L4-L5 and S1 levels bilaterally with assistance of fluoroscopy and appropriate sized carolyn contoured and placed. By way of a transforaminal approach on the left pleat discectomy of L3-L4 was performed endplates curetted to subcortical being bone and 9 x 22 mm peek cage filled with I factor tapped in position. Then proceeded to L4-L5 and again by way of a transforaminal approach on the left complete discectomy performed endplates curetted to subcortical being bone and again a 9 x 22 mm peek cage filled with I factor tapped in position. The rods were then compressed locked into final position bilaterally. The transverse processes of L2 L3-L4-L5 and sacral ala burred to subcortically bone. Infuse collagen sponge master graft local autograft was placed in the posterior gutters. 15 round CYNTHIA drain inserted. Incision was then closed with 1 Vicryl in the fascia 2-0 Vicryl subcutaneously and 4 Monocryl for final skin closure. Steri-Strip sterile dressings placed. Patient will continue PACU stable condition. Please note spinal cord monitoring visualized at the procedure no changes noted. Lastly Adriana Arndt was present at the entire surgeon while the patient positioning complex portions of the surgery and final skin closure. I attest to the content of the Intraoperative Record and any orders documented therein. Any exceptions are noted below.
--- NOTE | 2021-08-07 13:33 | Fluoroscopy Report ---
FL lumbar spine 2-3V HISTORY: 61 years-old Female L2-S1 DECOMPRESSION/FUSION COMPARISON: Chest radiograph 07/12/2021 TECHNIQUE: 2 spot fluoroscopic images of the lumbar spine were obtained utilizing 33.0 seconds fluoro scopy time FINDINGS: Posterior interbody carolyn and screw fusion hardware is noted at what appears to be the L2-S1 levels. Di scectomy changes are noted at the L3-L4 and L4-L5 levels. Multilevel spondylitic spurring. Alignment appears satisfactory. The hardware appears intact. IMPRESSION: Fluoroscopic assistance as above. ACT 112: Negative or not required by law. The above report was generated using voice recognition software. It may contain grammatical, syntax o r spelling errors. Electronically signed by: Kyree Moore M.D. 08/07/2021 1:31 PM
[2021-08-07] MEDS ORDERED: ALBUMIN HUMAN 5% 12.5 GM/250 ML VIAL IV ONE (13:35)
[2021-08-07] MEDS ORDERED: ALBUMIN 5% 250 ML IV ONE (13:39)
--- NOTE | 2021-08-07 14:09 | Anesthesiology Progress Note ---
Date of Service August 07, 2021 Anesthesia Post Procedure Vital Signs Vital Signs: Temp Pulse Pulse Resp BP Pulse Ox 08/07/21 13:55 89 20 115/61 100 08/07/21 13:45 79 12 93/59 L 100 08/07/21 13:35 75 14 94/58 L 100 08/07/21 13:25 67 14 72/49 L 100 08/07/21 13:16 36.3 C L 76 12 147/117 H 100 08/07/21 08:56 36.7 C 83 20 139/75 96 Transfer of Care Handoff Completed per policy Notes Mental Status: alert / awake / arousable Patient Amnestic to Procedure: Yes Nausea / Vomiting: adequately controlled Pain: adequately controlled Airway Patency, RR, SpO2: stable & adequate BP & HR: stable & adequate Hydration State: stable & adequate Anesthetic Complications: no major complications apparent Notes: patient had some transient hypotension in PACU. Responded well to crystalloid and 500c 5% albumin. She is mentating well and pain is well controlled.
[2021-08-07] MEDS ORDERED: DO NOT ADMINISTER FLU VACCINE PRN (15:29)
[2021-08-07] MEDS ORDERED: ACETAMINOPHEN 1,000 MG/100 ML VIAL IV PRN (15:29)
[2021-08-07] MEDS ORDERED: diphenhydrAMINE Capsule 25 MG CAP PO PRN (15:29)
[2021-08-07] MEDS ORDERED: PROMETHAZINE HCL 12.5 MG in SODIUM CHLORIDE 0.9% 50 ML IV PRN (15:29)
[2021-08-07] MEDS ORDERED: ALUMINUM/MAGNESIUM SUSP 30 ML UDC PO PRN (15:29)
[2021-08-07] MEDS ORDERED: NALOXONE HCL 0.4 MG/1 ML VIAL/CARP IV PRN (15:29)
[2021-08-07] MEDS ORDERED: LORazepam 0.5 MG/1 ML VIAL IV PRN (15:29)
[2021-08-07] MEDS ORDERED: oxyCODONE HCL IR 5 MG TAB (IMMEDIATE RELEASE) PO PRN (15:29)
[2021-08-07] MEDS ORDERED: DO NOT ADMINISTER PNEUMOCOCCAL VACCINE PRN (15:29)
[2021-08-07] MEDS ORDERED: HYDROmorphone INJ 0.5 MG/0.5 ML SYR IV PRN (15:29)
[2021-08-07] MEDS ORDERED: SOD PHOSPHATE/SOD BIPHOSPHATE ENEMA 132 ML BTL PR PRN (15:29)
[2021-08-07] MEDS ORDERED: FAMOTIDINE 20 MG TAB PO PRN (15:29)
[2021-08-07] MEDS ORDERED: ONDANSETRON 4 MG OD TAB PO PRN (15:29)
[2021-08-07] MEDS ORDERED: HYDROmorphone INJ 1 MG/ML SYRINGE IV PRN (15:29)
[2021-08-07] MEDS ORDERED: hydrOXYzine HCl 25 MG TAB PO PRN (15:29)
[2021-08-07] MEDS ORDERED: bisacodyL 10 MG SUPP PR PRN (15:29)
[2021-08-07] MEDS ORDERED: MAGNESIUM HYDROXIDE SUSP 30 ML UDC PO PRN (15:29)
[2021-08-07] MEDS ORDERED: LORazepam 0.5 MG TAB PO PRN (15:29)
[2021-08-07] MEDS ORDERED: LACTATED RINGER'S 1,000 ML IV SCH (15:45)
[2021-08-07] MEDS: KETOROLAC TROMETHAMINE 15 MG/ML VIAL IV SCH ×2 (17:32→21:25)
--- NOTE | 2021-08-07 17:54 | Hospitalist Consultation ---
Date of Consultation August 07, 2021 Assessment & Plan (1) Postoperative fever: pt has developed a post operative fever, did have covid testing positive 04/2020. and 08/07/21. 07/13/21 did have out pt upper respiratory sx, treated by pcp with Doxycycline now improved. testing at work ([employer]) 07/22/21 positive, testing negative as an outpt with Martinez test 08/03( discussion if 07/22 test was false +) , Day of surgery testing now Covid RNA, NAAT positive. Currently high fever, cannot determine exact cause at present. Biofire is ordered, will have the pt on airborne isolation, testing to consider active covid pneumonia, also testing for other pneumonia and urine infection, seems too soon to be wound infection will draw blood cultures and inflammatory markers. If hypoxic will consider for rendesivir. CXR initial review by myself does not show significant covid changes or changes of bacterial pneumonia (2) History of COVID-19: documented infection with minor symptoms 04/2020, uri sx 07/13/21, tested postive 07/22/21, negative martinez 08/03/21, now positive 08/07/21 (3) Hypertension: continues on lisinopril/hctz (4) GERD (gastroesophageal reflux disease): will have on pepcid 20 mg bid (5) Neurogenic claudication due to lumbar spinal stenosis: failing outpt management with L2-S1 Decompression and Fusion with Insertion of Interbodies, Application of Bone Morphogenetic Protein, on 08/07/21 History of Present Illness Attending Physician: Willy Camarillo, DO History of Present Illness 61 F who underwent L2-S1 Decompression asnd Fusion with insertion of interbodies and application of bone Morphogenic protein, found to be Covid martinez test positive and developing post operative fever of 103F is on post operative oxygen but no defined hypoxia noted, will need determine if hypoxic to determine if qualifies for Remdesivir, was started on Decadron 6 mg daily by surgery post op which will support to continue Pt did have covid + test 04/2020, uri sx 07/20 and tested positive 07/[address], negative pre op martinez test 08/03/21, now + 08/07/21 but pending biofire re test Allergies Allergy/AdvReac Type Severity Reaction Status Date / Time tramadol AdvReac Severe N/V Verified 08/07/21 08:55 codeine AdvReac Mild Chest pain Verified 08/07/21 08:55 Home Medications Medication Instructions Recorded Confirmed Type Tylenol Headache Otc 1 tab PO DAILY PRN 07/06/21 07/06/21 History albuterol sulfate 90 mcg/actuation 2 puff INHALATION Q6H PRN 07/06/21 07/06/21 History aerosol inhaler ascorbic acid (vitamin C) 1,000 mg 1 g PO QAM 07/06/21 07/06/21 History tablet (Vitamin C With Tiffany Hips) cholecalciferol (vitamin D3) 50 50 mcg PO QAM 07/06/21 07/06/21 History mcg (2,000 unit) capsule (Vitamin D3) glucosamine sulf dipot 1 cap PO QAM 07/06/21 07/06/21 History chlr,msm,chond 550 mg-C 30 mg-david 1 mg capsule (Glucosamine Chondroitin) ibuprofen 200 mg capsule 400 mg PO Q6H PRN 07/06/21 07/06/21 History lisinopril 20 2 tab PO QPM 07/06/21 07/06/21 History mg-hydrochlorothiazide 12.5 mg tablet zinc 50 mg tablet 50 mg PO QAM 07/06/21 07/06/21 History doxycycline monohydrate 100 mg PO BID 07/20/21 07/20/21 History methylprednisolone 4 mg PO DAILY 07/20/21 07/20/21 History Patient History Medical History (Updated 08/07/21 @ 17:47 by Serg Diallo MD) Allergic symptoms yearly in fall (nasal congestion, cough and ear itching) currently on doxycycline and Medrol dose pack by PCP for current flare per pt Arthritis Bronchitis Often develops after allergy symptoms most recent inhaler use winter 2019 Cancer Right arm melanoma (2019)- traveled to right axillary lymph node s/p immunotherapy, Follows with Dr. Ordonez, ([facility]/[place]) and Dr. Fernandes ([place]) *RUE limb restriction* Cardiac murmur In childhood, resolution per pt GERD (gastroesophageal reflux disease) Controlled, stable History of COVID-19 Dx 04/2020 > symptoms at time of: mild cough, extreme fatigue > resolved Hypertension well controlled, stable Migraine Hx Temporomandibular joint disorder + clicking, no locking Surgical History History of back surgery Discectomy (1983) History of back surgery Fatty tumor removal History of carpal tunnel release R/L History of section History of cholecystectomy History of surgery on arm RUE melanoma excision with lymph node removal History of tonsillectomy History of total hip arthroplasty Left Family History Other No known health problems Social History (Updated 07/06/21 @ 09:42 by Amy Barrow, MICKEY) Smoking Status: Never smoker Second Hand Exposure: Yes (KIDS SMOKE); Do You Dip or Chew Tobacco: No; Hx Alcohol Use: No Hx Substance Use: No Preferred Language: Lithuanian Communication Ability: Effective Stick Welder Required: No Beliefs That Will Affect Care: None Current Living Situation: Spouse current occupational status: employed current occupation: [employer] Other Information That Helps Us Care for You: No Feels Safe at Home: Yes Safety Concerns: Feels Safe At This Time Assistive Devices: Glasses, Oxygen - Continuous and Walker Review of Systems Review of Systems: Mild distress and fatigue no headache, no visual changes no speech or swallowing issues no chest pain, pressure or palpitations no shortness of breath, cough or wheezes no abdominal pain, nausea or vomiting, diarrhea or constipation no dysuria, hematuria or frequency no focal joint pain or swelling no back pain, CVA tenderness or radicular pain no bruising, bleeding or rashes no focal signs of weakness or numbness or altered sensation no complaints of anxiety or depression.. Physical Exam Physical Exam: The patient appeared well nourished and normally developed. Has absolutely zero respiratory symptoms Vital signs as documented. Head exam is normocephalic atraumatic Neck is without JVD, thyromegaly, or carotid bruits. Lungs are clear to auscultation, no focal loss of breath sounds Cardiac exam, Rhythm is regular.. No murmurs, rubs or gallops. Abdominal exam reveals normal bowel sounds, soft non tender, no masses Extremities are nonedematous and both pedal pulses are present Neurologic exam is alert and oriented, no focal loss of strength or sensation Skin is without bruises or rashes, lumbar drain in place Psychologically is without concerns for anxiety or depression Results & Data Results & Data ([place]) Vital Signs (Past 12 Hours) Vital Signs Temp Pulse Pulse Resp BP Pulse Ox 08/07/21 17:00 103.3 F H 80 16 106/65 100 08/07/21 16:10 85 18 99/68 L 100 08/07/21 15:55 91 H 16 120/77 100 08/07/21 15:40 97.3 F L 76 16 100/61 100 08/07/21 15:25 71 16 110/81 98 08/07/21 15:10 81 15 106/64 100 08/07/21 14:55 86 14 111/71 100 08/07/21 14:40 69 16 104/63 100 08/07/21 14:25 89 15 105/60 100 08/07/21 14:10 97.0 F L 94 H 20 104/66 96 08/07/21 13:55 89 20 115/61 100 08/07/21 13:45 79 12 93/59 L 100 08/07/21 13:35 75 14 94/58 L 100 08/07/21 13:25 67 14 72/49 L 100 08/07/21 13:16 97.3 F L 76 12 147/117 H 100 08/07/21 08:56 98.1 F 83 20 139/75 96 PG Care Time/CCT Total # of Minutes Spent Total Time Spent with Patient: Total time spent is greater than 50% in coordination of care (as documented) at patient's floor/unit and/or counseling patient: Coding Level of Care Code 25776 Inpt Consult Level 4 Diagnoses Hypertension I10 History of COVID-19 Z86.16 GERD (gastroesophageal reflux disease) K21.9 Neurogenic claudication due to lumbar spinal stenosis M48.062 Postoperative fever R50.82
--- NOTE | 2021-08-07 18:22 | XRay Report ---
XR chest 1V portable HISTORY: 61 years-old Female r/o covid pneumonia acute shortness of breath COMPARISON: Chest radiograph 07/20/2021 TECHNIQUE: Portable AP view of the chest FINDINGS: Cardiomediastinal and hilar silhouettes are within normal limits. No pneumothorax, pleural effusion, airspace consolidation or overt pulmonary edema. No acute fracture. Degenerative changes of the shoul ders and spine. Lumbar spinal fusion hardware is partially imaged IMPRESSION: No acute process. ACT 112: Negative or not required by law. The above report was generated using voice recognition software. It may contain grammatical, syntax o r spelling errors. Electronically signed by: Kyree Moore M.D. 08/07/2021 6:21 PM
[2021-08-07 18:28] LABS: Basophils # (auto) 0.01 K/uL (0-0.2); Basophils % (auto) 0.2 %; Eosinophils # (auto) 0.01 K/uL (0-0.5); Eosinophils % (auto) 0.2 %; Hematocrit (blood only) 29.8 % (37-47); Hemoglobin 10.1 g/dL (12.0-16.0); Immature Granulocytes # (auto) 0.02 K/uL (0.00-0.02); Immature Granulocytes % (auto) 0.3 %; Lymphocytes # (auto) 0.42 K/uL (1.2-3.4); Lymphocytes % (auto) 6.3 %; Mean Corpuscular Hgb Conc 33.9 g/dL (32-36); Mean Corpuscular Volume 91.4 fL (80-100); Mean Platelet Volume 10.4 fL (7.4-10.4); Monocytes # (auto) 0.27 K/uL (0.11-0.59); Monocytes % (auto) 4.1 %; Neutrophils # (auto) 5.93 K/uL (1.4-6.5); Neutrophils % (auto) 88.9 %; Platelet Count 230 K/uL (130-400); RDW Coefficient of Variation 12.5 % (11.5-14.5); RDW Standard Deviation 42.2 fL (36.4-46.3); Red Blood Count 3.26 M/uL (4.2-5.4); White Blood Count 6.66 K/uL (4.8-10.8)
[2021-08-07 18:56] LABS: Albumin Level 3.2 gm/dl (3.4-5.0); BUN Creatinine Ratio 22.2 (10-20); C Reactive Protein 0.41 mg/dl (0-0.29); Calcium 9.3 mg/dl (8.5-10.1); Creatinine Clr Calc Pharmacy 65.8 ml/min; Est GFR (African American) 85.7 ml/min; Potassium 3.9 mmol/L (3.5-5.1)
[2021-08-07 18:59] LABS: Albumin Globulin Ratio 1.1 (0.9-2); Bilirubin,Total 0.5 mg/dl (0.2-1); Total Protein 6.2 gm/dl (6.4-8.2)
[2021-08-07 19:41] LABS: Appearance Urine Clear (Clear); Bilirubin Urine Negative (Negative); Blood Urine Negative (Negative); Color Urine Dark Yellow; Epithelial Cell Urine Auto >30 /lpf (0-5); Glucose Urine UA Negative (Negative); Ketones Urine Trace (Negative); Leukocyte Esterase Urine Negative (Negative); Nitrite Urine Negative (Negative); Protein Urine Trace (Negative); Specific Gravity Urine 1.031 (1.000-1.030); Urobilinogen Urine Negative (Negative)
[2021-08-07] MEDS ORDERED: SODIUM CHLORIDE 0.9% 1000ML 1,000 ML IV SCH (19:45)
[2021-08-07 20:28] LABS: Adenovirus PCR Not Detected (NotDetected); Bordetella parapertussis PCR Not Detected (NotDetected); Bordetella pertussis PCR Not Detected (NotDetected); Chlamydia pneumoniae PCR Not Detected (NotDetected); Coronavirus 229E PCR Not Detected (NotDetected); Coronavirus HKU1 PCR Not Detected (NotDetected); Coronavirus NL63 PCR Not Detected (NotDetected); Coronavirus OC43PCR Not Detected (NotDetected); Human Metapneumovirus PCR Not Detected (NotDetected); Influenza A PCR Not Detected (NotDetected); Influenza B PCR Not Detected (NotDetected); Mycoplasma pneumoniae PCR Not Detected (NotDetected); Parainfluenza Virus 1 PCR Not Detected (NotDetected); Parainfluenza Virus 2 PCR Not Detected (NotDetected); Parainfluenza Virus 3 PCR Not Detected (NotDetected); Parainfluenza Virus 4 PCR Not Detected (NotDetected); Respiratory Syncytial VirusPCR Not Detected (NotDetected); Rhinovirus/Enterovirus PCR Not Detected (NotDetected)
[2021-08-07 20:41] LABS: Coronavirus CoV-2 (COVID19)PCR DETECTED (NotDetected)
[2021-08-07 20:59] LABS: Bacteria Urine Automated 1+ (Negative)
[2021-08-07] MEDS: ceFAZolin 2000MG 2,000 MG/15 ML SYR IV SCH (21:24)
[2021-08-07] MEDS: DOCUSATE SODIUM/SENNA 50/8.6MG TAB PO SCH (21:25)
[2021-08-07] MEDS: FAMOTIDINE 20 MG TAB PO SCH ×2 (21:26→21:46)
[2021-08-07] MEDS: LISINOPRIL/HCTZ 20/12.5MG 1 TAB TAB PO SCH (21:26)
[2021-08-07] MEDS: ONDANSETRON INJ 2 MG/ML 2 ML VIAL IV PRN (21:46)
[2021-08-08] MEDS: ceFAZolin 2000MG 2,000 MG/15 ML SYR IV SCH (04:12)
[2021-08-08] MEDS: KETOROLAC TROMETHAMINE 15 MG/ML VIAL IV SCH ×2 (04:12→11:32)
[2021-08-08 05:59] LABS: Basophils # (auto) 0.01 K/uL (0-0.2); Basophils % (auto) 0.1 %; Hemoglobin 8.8 g/dL (12.0-16.0); Immature Granulocytes # (auto) 0.01 K/uL (0.00-0.02); Immature Granulocytes % (auto) 0.1 %; Lymphocytes # (auto) 0.71 K/uL (1.2-3.4); Lymphocytes % (auto) 10.5 %; Mean Corpuscular Hemoglobin 29.9 pg (25-34); Mean Corpuscular Hgb Conc 32.6 g/dL (32-36); Mean Corpuscular Volume 91.8 fL (80-100); Mean Platelet Volume 10.6 fL (7.4-10.4); Monocytes # (auto) 0.62 K/uL (0.11-0.59); Monocytes % (auto) 9.2 %; Neutrophils % (auto) 80.1 %; Platelet Count 196 K/uL (130-400); RDW Coefficient of Variation 12.9 % (11.5-14.5); RDW Standard Deviation 43.8 fL (36.4-46.3); Red Blood Count 2.94 M/uL (4.2-5.4); White Blood Count 6.75 K/uL (4.8-10.8)
[2021-08-08 06:33] LABS: Alanine Aminotransferase 382 U/L (12-78); Albumin Level 2.9 gm/dl (3.4-5.0); Aspartate Aminotransferase 264 U/L (15-37); BUN Creatinine Ratio 25.3 (10-20); Bilirubin Direct < 0.1 mg/dl (0-0.2); Blood Urea Nitrogen 21 mg/dl (7-18); Calcium 9.2 mg/dl (8.5-10.1); Carbon Dioxide 26 mmol/L (21-32); Chloride 107 mmol/L (98-107); Creatinine Clr Calc Pharmacy 68.2 ml/min; Est GFR (African American) 89.5 ml/min; Est GFR (Non-African American) 77.2 ml/min; Glucose 117 mg/dl (70-99); Sodium 138 mmol/L (136-145)
[2021-08-08 06:36] LABS: Alkaline Phosphatase 88 U/L (45-117); Bilirubin,Total 0.3 mg/dl (0.2-1); Total Protein 5.6 gm/dl (6.4-8.2)
[2021-08-08] MEDS: ONDANSETRON INJ 2 MG/ML 2 ML VIAL IV PRN (06:36)
[2021-08-08] MEDS: POLYETHYLENE (MIRALAX) 17 GM PACK PO SCH ×4 (06:37→23:19)
[2021-08-08] MEDS: dexAMETHasone 6 MG in SYRINGE 0 ML IV SCH (08:30)
[2021-08-08] MEDS: ASCORBIC ACID 500 MG TAB PO SCH (08:30)
[2021-08-08] MEDS: FAMOTIDINE 20 MG TAB PO SCH ×2 (08:30→21:50)
--- NOTE | 2021-08-08 08:37 | Orthopedic Progress Note ---
Date of Service August 08, 2021 Assessment & Plan (1) Neurogenic claudication due to lumbar spinal stenosis: Plan: At this time we will initiate physical therapy when she is feeling more comfortable regarding her nausea. She is avoided narcotic pain medication since it seems to be tolerating this well. Admission and Anticipated Discharge Date Admission Date: August 07, 2021 Subjective Patient's leg symptoms are markedly improved. She is struggling with nausea but no pain. Physical Exam Physical Exam: On exam she does exhibit excellent strength testing of bilateral extremities. Results & Data ([facility]) Vital Signs (Past 12 Hours) Vital Signs Temp Pulse Pulse Resp BP Pulse Ox 08/08/21 08:08 36.8 C 83 16 117/76 100 08/08/21 04:21 36.8 C 78 16 123/77 99 08/07/21 21:23 36.4 C L 74 16 99/64 L 100
[2021-08-08] MEDS: METOCLOPRAMIDE HCL INJ 5 MG/ML 2 ML VIAL IV PRN ×2 (09:08→17:50)
--- NOTE | 2021-08-08 17:29 | Hospitalist Progress Note ---
Date of Service August 08, 2021 Assessment & Plan (1) Postoperative fever: Plan: - Pt developed a post operative fever x1, did have covid testing positive 04/2020 and 08/07/21. - 07/13/21 had o/p URI, treated by pcp with Doxycycline now improved. 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 - Day of surgery testing now Covid RNA, NAAT positive. - Currently high fever x1 of uncertain etiology. - Biofire is ordered, pt on airborne isolation, testing to consider active covid pneumonia, also testing for other pneumonia and urine infection, seems too soon to be wound infection - blood cultures and inflammatory markers ordered. Blood cultures pending. CRP low but mildly elevated at 0.41, could just be from surgery itself. CXR does not show significant covid changes or changes of bacterial pneumonia (2) History of COVID-19: Plan: - Documented infection with minor symptoms 04/2020, uri sx 07/13/21, tested postive 07/22/21, - Negative Lockett 08/03/21, now positive 08/07/21 - Given lack of active symptomatology, suspect that her 08/03 test was a false negative - I believe her 08/07 + result is residual from her Oct infection as we know patients can continue to have a positive result even when the virus is no longer viable - Would not be a candidate for Remdesivir (if active infection) due to her elevated LFTs - Will d/w ID to determine if pt truly needs to be in isolation -- I suspect she does not (3) Hypertension: Plan: - continue lisinopril/hctz - BP well controlled (4) GERD (gastroesophageal reflux disease): Plan: - On pepcid 20 mg bid (5) Neurogenic claudication due to lumbar spinal stenosis: Plan: failing outpt management with L2-S1 Decompression and Fusion with Insertion of Interbodies, Application of Bone Morphogenetic Protein, on 08/07/21 (6) Elevated LFTs: Plan: - Uncertain etiology - Downtrending - will continue to trend (7) Anemia: Plan: - Secondary to blood loss from surgical procedure - Normal H&H from 07/20/21 - Could consider Ferrous Sulfate 325mg BID for 60 days Plan: Ambulation/therapy as per primary service Trend labs Will discuss post op fever/+covid with ID Thank you for allowing us to participate in her care. Will continue to follow. Admission and Anticipated Discharge Date Admission Date: August 07, 2021 Supervising Physician Co-Signing Physician Notes Attending Attestation - Chart reviewed in detail, care plan d/w FAYE Benavidez. I agree w/ the cooper components of her documentation. h/o COVID-19 infection - PCR confirmed in June. recent back surgery by Dr Camarillo (08/07). post-op fever of 103. suspect COVID positivity is simply "left-over" positivity from her illness in June. acute hepatitis -- due to "shock" liver? (documented hypotension on 08/07). consider RUQ u/s to r/o biliary obstruction but doubt (bili wnl). in light of elevated VTE risk -- recent COVID, back surgery, etc -- consider dopplers of legs to r/o DVT as VTE can cause fevers. Phillip Clayton MD Subjective Ms. Gruber was seen on rounds this morning. Pt is s/p lumbar decompression and fusion with insertion of interbodies, application of bone morphogenetic protein pod #1. Hospitalists were asked to see in consult d/t post operative fever and positive COVID testing on 08/07. Apparently post operatively pt developed temp of 103F and had a positive COVID NAAT. However, pt notes that she had tested positive for COVID in May 2020 and then again in June 2021. She was symptomatic at that time and tested positive on 07/22. She reports that on 08/03, she did an at-home Lockett test that was negative. Currently, pt c/o nausea and vomiting. Just prior to being seen, pt was medicated by RN with Reglan and has only had one bout of emesis since receiving that. She notes nausea worse with position change. Back pain is not uncontrolled. She denies cp, dyspnea, cough, congestion, diarrhea, abd pain, or gu symptoms (colon inserted). No further episodes of fever. Review of Systems Review of Systems: CONSTITUTIONAL: Denies weight loss/gain, fever (one post op) and chills, +fatigue, malaise, generalized weakness. HEENT: Denies changes in vision and hearing. RESPIRATORY: Denies SOB, cough, wheezing. CV: Denies palpitations, CP, lower extremity edema, orthopnea, PND. GI: Denies abdominal pain, nausea, vomiting and diarrhea. : colon MUSCULOSKELETAL: Denies myalgia and joint pain. SKIN: Denies rash and pruritus. NEUROLOGICAL: Denies headache, syncope, focal weakness, numbness, tingling. PSYCHIATRIC: Denies recent changes in mood. Denies anxiety and depression. Physical Exam Physical Exam: GENERAL: 61 yo Well-developed, well-nourished WF. NAD. LUNGS: Clear to auscultation bilaterally. No accessory muscle use. No W/R/R. CARDIOVASCULAR: Regular rate and rhythm. No M/G/R. No JVD. ABDOMEN: Soft, non-tender and non-distended. No palpable masses. Bowel sounds normoactive x 4 quad. EXTREMITIES: No edema. Non-tender. Peripheral pulses +2/4. NEUROLOGIC: A&O x3. No focal neurological deficits. CN II-XII grossly intact. PSYCHIATRIC: Cooperative. Appropriate mood and affect. SKIN: Back surgical incision is dressed. Dressing dry. Skin otherwise warm, dry, intact. No rashes or lesions. Results & Data Results & Data ([facility]) Vital Signs (Past 12 Hours) Vital Signs Temp Pulse Resp BP Pulse Ox 08/08/21 16:44 37.0 C 81 16 112/73 99 08/08/21 08:08 36.8 C 83 16 117/76 100 Laboratory Results 08/08/21 05:18 08/08/21 05:18 PG Care Time/CCT Total # of Minutes Spent Total Time Spent with Patient: Total time spent is greater than 50% in coordination of care (as documented) at patient's floor/unit and/or counseling patient: Coding Level of Care Code 13943 Subseq Hosp Care Lvl 2 Diagnoses Postoperative fever R50.82 History of COVID-19 Z86.16 Hypertension I10 GERD (gastroesophageal reflux disease) K21.9 Neurogenic claudication due to lumbar spinal stenosis M48.062 Elevated LFTs R79.89 Anemia D64.9
[2021-08-08] MEDS: LISINOPRIL/HCTZ 20/12.5MG 1 TAB TAB PO SCH (21:50)
[2021-08-08] MEDS: DOCUSATE SODIUM/SENNA 50/8.6MG TAB PO SCH (21:50)
[2021-08-09 06:07] LABS: Basophils # (auto) 0.02 K/uL (0-0.2); Basophils % (auto) 0.3 %; Eosinophils # (auto) 0.01 K/uL (0-0.5); Eosinophils % (auto) 0.1 %; Hematocrit (blood only) 27.7 % (37-47); Hemoglobin 9.3 g/dL (12.0-16.0); Immature Granulocytes # (auto) 0.01 K/uL (0.00-0.02); Immature Granulocytes % (auto) 0.1 %; Lymphocytes # (auto) 1.28 K/uL (1.2-3.4); Lymphocytes % (auto) 17.9 %; Mean Corpuscular Hgb Conc 33.6 g/dL (32-36); Mean Corpuscular Volume 92.3 fL (80-100); Mean Platelet Volume 9.9 fL (7.4-10.4); Monocytes # (auto) 0.78 K/uL (0.11-0.59); Monocytes % (auto) 10.9 %; Neutrophils # (auto) 5.05 K/uL (1.4-6.5); Neutrophils % (auto) 70.7 %; Platelet Count 204 K/uL (130-400); RDW Coefficient of Variation 13.1 % (11.5-14.5); RDW Standard Deviation 44.4 fL (36.4-46.3); White Blood Count 7.15 K/uL (4.8-10.8)
[2021-08-09] MEDS: POLYETHYLENE (MIRALAX) 17 GM PACK PO SCH ×4 (06:24→23:54)
[2021-08-09 06:42] LABS: Albumin Level 3.1 gm/dl (3.4-5.0); Bilirubin Direct 0.1 mg/dl (0-0.2); Bilirubin,Total 0.5 mg/dl (0.2-1); Total Protein 6.2 gm/dl (6.4-8.2)
[2021-08-09] MEDS: FAMOTIDINE 20 MG TAB PO SCH (08:40)
[2021-08-09] MEDS: ASCORBIC ACID 500 MG TAB PO SCH (08:41)
[2021-08-09] MEDS: ACETAMINOPHEN 500 MG TAB PO PRN ×2 (08:41→21:37)
[2021-08-09] MEDS: dexAMETHasone 6 MG in SYRINGE 0 ML IV SCH (08:43)
--- NOTE | 2021-08-09 09:48 | Hospitalist Progress Note ---
Date of Service August 09, 2021 Assessment & Plan (1) Postoperative fever: Plan: - Pt developed a post operative fever x1, did have covid testing positive 04/2020, 07/22/21, and 08/07/21. - 07/13/21 had o/p URI, treated by pcp with Doxycycline now improved. - Testing at work (SNF) 07/22/21 positive, testing negative as an outpatient on 08/03 ?false negative - Day of surgery testing (08/07) Covid RNA, NAAT positive. - Currently high fever x1 of uncertain etiology. - Biofire is ordered, + COVID PCR but otherwise panel is negative - Pt on airborne isolation; however, after d/w ID do not feel that this is necessary. Pt had positive test 07/22, has been isolated 10 days since that infection. D/C airborne/COVID isolation - blood cultures negative - Urine culture negative - CRP 08/08- 0.41, could just be from surgery itself. (2) History of COVID-19: Plan: - Documented infection with minor symptoms 04/2020, uri sx 07/13/21, tested postive 07/22/21 - Negative Lockett 08/03/21, now positive 08/07/21 - Given lack of active symptomatology, suspect that her 08/03 test was a false negative - I believe her 08/07 + result is residual from her Oct infection as we know patients can continue to have a positive result even when the virus is no longer viable - D/w ID - no need for continued covid isolation precautions, will d/c (3) Hypertension: Plan: - continue lisinopril/hctz - BP up this AM but this is prior to medical logistics specialist (4) GERD (gastroesophageal reflux disease): Plan: - On pepcid 20 mg bid - Add PPI (5) Neurogenic claudication due to lumbar spinal stenosis: Plan: failing outpt management with L2-S1 Decompression and Fusion with Insertion of Interbodies, Application of Bone Morphogenetic Protein, on 08/07/21 (6) Elevated LFTs: Plan: - Uncertain etiology ?shock from episode of hypotension - Downtrending - will continue to trend - No suspicion of biliary disease, TB and DB both WNL, no abd pain (7) Anemia: Plan: - Secondary to blood loss from surgical procedure - Normal H&H from 07/20/21 - Could consider Ferrous Sulfate 325mg BID for 60 days Plan: Ambulation/therapy as per primary service Trend labs Thank you for allowing us to participate in her care. Will sign off at this time as patient is medically stable. No further fevers. Will continue to do periodic chart checks. Admission and Anticipated Discharge Date Admission Date: August 07, 2021 Supervising Physician Co-Signing Physician Notes Attending Attestation - Chart reviewed in detail, care plan d/w FAYE Benavidez. I agree w/ the cooper components of her documentation. h/o COVID-19 infection - PCR confirmed in June. recent back surgery by Dr Camarillo (08/07). post-op fever of 103. suspect COVID positivity is simply "left-over" positivity from her illness in June (ie - nonviable virus leading to +COVID test). acute hepatitis -- suspected "shock" liver as patient had documented hypotension on 08/07. LFTs continue to improve. Blood and urine cultures remain negative. No fevers overnight. Phillip Clayton MD Subjective Ms. Gruber was seen on rounds this morning. Pt is s/p lumbar decompression and fusion with insertion of interbodies, application of bone morphogenetic protein pod #2. Hospitalists were asked to see in consult d/t post operative fever and positive COVID testing on 08/07. Apparently post operatively pt developed temp of 103F and had a positive COVID NAAT. However, pt notes that she had tested positive for COVID in May 2020 and then again in June 2021. She was symptomatic at that time and tested positive on 07/22. She reports that on 08/03, she had a negative COVID test here at [facility]. Currently, she reports back pain is controlled (has none), still having some regurgitation of bilious emesis (small amount) but denies nausea or joanna vomiting. She denies cp, dyspnea, cough, congestion, diarrhea, abd pain, or gu symptoms. No further episodes of fever. Review of Systems Review of Systems: CONSTITUTIONAL: Denies weight loss/gain, fever (one post-op) and chills, fatigue, malaise, generalized weakness. HEENT: Denies changes in vision and hearing. RESPIRATORY: Denies SOB, cough, wheezing. CV: Denies palpitations, CP, lower extremity edema, orthopnea, PND. GI: +emesis ?reflux. Denies abdominal pain, nausea, vomiting and diarrhea. : Denies frequency, urgency, dysuria, or hematuria. MUSCULOSKELETAL: Denies myalgia and joint pain. SKIN: Denies rash and pruritus. NEUROLOGICAL: Denies headache, syncope, focal weakness, numbness, tingling. PSYCHIATRIC: Denies recent changes in mood. Denies anxiety and depression. Physical Exam Physical Exam: GENERAL: 61 yo Well-developed, well-nourished WF. NAD. LUNGS: Clear to auscultation bilaterally. No accessory muscle use. No W/R/R. CARDIOVASCULAR: Regular rate and rhythm. Soft 1/6 VINCE noted this AM. No G/R. No JVD. ABDOMEN: Soft, non-tender and non-distended. No palpable masses. Bowel sounds normoactive x 4 quad. EXTREMITIES: No edema. Non-tender. Peripheral pulses +2/4. Negative ana laura's sign. NEUROLOGIC: A&O x3. PSYCHIATRIC: Cooperative. Appropriate mood and affect. SKIN: Back surgical incision is dressed. CYNTHIA drain noted. Dressing dry. Skin otherwise warm, dry, intact. No rashes or lesions. Results & Data Results & Data ([facility]) Vital Signs (Past 12 Hours) Vital Signs Temp Pulse Pulse Resp BP Pulse Ox 08/09/21 08:19 36.4 C L 82 20 162/90 H 100 08/08/21 21:46 36.9 C 90 16 141/78 H 100 Laboratory Results Laboratory Results - last 24 hr 08/09/21 08/09/21 05:47 05:47 WBC 7.15 RBC 3.00 L Hgb 9.3 L Hct 27.7 L MCV 92.3 MCH 31.0 MCHC 33.6 RDW Std Deviation 44.4 RDW Coeff of Torrey 13.1 Plt Count 204 MPV 9.9 Immature Gran % (Auto) 0.1 Neut % (Auto) 70.7 Lymph % (Auto) 17.9 Gilliam % (Auto) 10.9 Eos % (Auto) 0.1 Baso % (Auto) 0.3 Neut # (Auto) 5.05 Lymph # (Auto) 1.28 Gilliam # (Auto) 0.78 H Eos # (Auto) 0.01 Baso # (Auto) 0.02 Immature Gran # (Auto) 0.01 Total Bilirubin 0.5 Direct Bilirubin 0.1 AST 79 H ALT 193 H Alkaline Phosphatase 85 Total Protein 6.2 L Albumin 3.1 L PG Care Time/CCT Total # of Minutes Spent Total Time Spent with Patient: Total time spent is greater than 50% in coordination of care (as documented) at patient's floor/unit and/or counseling patient: Coding Level of Care Code 27674 Subseq Hosp Care Lvl 2 Diagnoses Postoperative fever R50.82 History of COVID-19 Z86.16 Hypertension I10 GERD (gastroesophageal reflux disease) K21.9 Neurogenic claudication due to lumbar spinal stenosis M48.062 Elevated LFTs R79.89 Anemia D64.9
[2021-08-09] MEDS: PANTOprazole 40 MG TAB PO SCH (10:51)
[2021-08-09] MEDS ORDERED: PSEUDOEPHEDRINE HCL 30 MG TAB PO STA (15:56)
--- NOTE | 2021-08-09 15:59 | Orthopedic Progress Note ---
Date of Service August 09, 2021 Assessment & Plan (1) Neurogenic claudication due to lumbar spinal stenosis: Plan: At this time continue physical therapy anticipate discharge home tomorrow. Admission and Anticipated Discharge Date Admission Date: August 07, 2021 Subjective Back pain is controlled leg symptoms markedly improved. She is complaining of a sinus headache and postnasal drip. Physical Exam Physical Exam: Patient is in bed at this time. She has good strength testing. Results & Data ([facility]) Vital Signs (Past 12 Hours) Vital Signs Temp Pulse Pulse Resp BP Pulse Ox 08/09/21 15:20 37.1 C 75 16 122/78 100 08/09/21 08:19 36.4 C L 82 20 162/90 H 100
[2021-08-09] MEDS: LISINOPRIL/HCTZ 20/12.5MG 1 TAB TAB PO SCH (21:40)
[2021-08-09] MEDS: DOCUSATE SODIUM/SENNA 50/8.6MG TAB PO SCH (21:40)
[2021-08-10] MEDS: POLYETHYLENE (MIRALAX) 17 GM PACK PO SCH (06:06)
[2021-08-10 07:09] LABS: Albumin Level 3.3 gm/dl (3.4-5.0); BUN Creatinine Ratio 21.1 (10-20); Bilirubin Direct 0.1 mg/dl (0-0.2); Bilirubin,Total 0.6 mg/dl (0.2-1); Calcium 10.1 mg/dl (8.5-10.1); Creatinine Clr Calc Pharmacy 82.3 ml/min; Est GFR (African American) 109.4 ml/min; Est GFR (Non-African American) 94.4 ml/min; Potassium 3.4 mmol/L (3.5-5.1); Total Protein 6.7 gm/dl (6.4-8.2)
[2021-08-10] MEDS ORDERED: POTASSIUM CHLORIDE CRTAB 20 MEQ TABCR PO STA (07:52)
[2021-08-10] MEDS: dexAMETHasone 6 MG in SYRINGE 0 ML IV SCH (07:56)
[2021-08-10] MEDS: ONDANSETRON INJ 2 MG/ML 2 ML VIAL IV PRN (07:56)
[2021-08-10] MEDS: ASCORBIC ACID 500 MG TAB PO SCH (09:00)
[2021-08-10] MEDS: PANTOprazole 40 MG TAB PO SCH (10:07)
--- NOTE | 2021-08-10 11:22 | Discharge Summary ---
Date of Service August 10, 2021 Admission HPI Per Admitting Provider This is a 61-year-old female presents with chronic persistent lumbosacral back pain rating down the left greater than right lower extremities. It does extend to the foot. This has been progressive for years but markedly decline over the past several months. She cannot stand or walk any distance. She can only stand and ambulate for a few feet before the pain becomes severe. She had a chronic extensive course of physical therapy and pain management without resolution. Principal Diagnosis Lumbar spinal stenosis with neurogenic claudication Discharge Data Allergies Allergy/AdvReac Type Severity Reaction Status Date / Time tramadol AdvReac Severe N/V Verified 08/07/21 08:55 codeine AdvReac Mild Chest pain Verified 08/07/21 08:55 Consultations 08/07/21 15:29 Consult Hospitalist Routine Procedures Performed Operation Date: 08/07/21 10:05 Actual Procedures p L2-S1 Decompression and Fusion with Insertion of Interbodies, Application of Bone Morphogenetic Protein, Spinal Cord Monitoring(Not Applicable) - Willy Camarillo DO Ordered Studies 08/07/21 10:05 FL lumbar spine 2-3V Routine Hospital Course (1) Neurogenic claudication due to lumbar spinal stenosis: Patient with limited vision fusion Targis on thickened orthopedic for postop labor postop and when she was up and ambulating well postoperative day 2 and 3 pain well controlled CYNTHIA drain decreasing appropriately. Subsequent discharge home. Discharge orders and instructions found the chart for further review. Total Time Total Time Spent Total Time Spent (In Minutes): 20 minutes Discharge Plan Discharge Items Patient Disposition: Home - Self-Care Reason For Visit: Spinal Stenosis, Lumbar Region with Neurogenic Discharge Diagnosis: Lumbar spinal stenosis with neurogenic claudication Activity: As commented below Non-emergency contact: Primary Care Provider Call non-emergency contact if: you have any medication questions Follow-up/Referrals: Chiquis Eason M.D. [Primary Care Provider] - Diet: Regular Addtl Attending Provider Instructions: ACTIVITY RECOMMENDATIONS: SELF CARE INSTRUCTIONS AFTER THORACIC/LUMBAR FUSIONS 1. You may walk to your tolerance. It is good exercise for your legs and back. Expect some back and intermittent leg aches and pains. 2. You may perform "counter-top" level activities (make a sandwich, estefany with a project, etc.). 3. No bending or lifting of more than 10 pounds or back twisting of any nature (roll like a log when turning in bed). 4. You may ride in a car for 20-30 minutes at a time. No driving until after your first visit with your doctor. 5. Frequent changes of position and restricting sitting to 30 minutes at a time will help limit the amount of back spasms and stiffness you may experience. 6. You may discontinue the use of ambulatory aids (cane, crutches, etc.) once your strength and confidence allow. 7. You may grinding wheel operator the shower and let water strike your incision when you arrive home at least once daily. Do not take a tub bath, sit in a hot tub or go into a swimming pool until after your first recheck in the office. SPECIAL CARE INSTRUCTIONS: VERY IMPORTANT TO READ AND REVIEW A. Your surgical incision has been closed with a cosmetic suture under the skin that will dissolve in about 6 weeks. In 14 days, you can use a pair of clean scissors and cut the suture that is left outside of the skin at the ends of your incision. 1. The small skin tapes can be removed 7 days after surgery if they have not fallen off by that point. 2. You may keep the wound open to air as much as possible to promote healing after post-op day number 5 unless told otherwise by your doctor. 3. If you think the wound looks like it is becoming infected (redness or worsening drainage) and/or you are experiencing fever, chill or worsening back pain and muscle spasms, contact the office so that we may evaluate you as soon as possible. B. Complications are uncommon, but please contact us if you have any signs or symptoms of: 1. wound infection (fever higher than 102.5 degrees F, redness, separation of wound, drainage, or increasing pain from the incision) 2. blood clots in legs (pain, swelling, redness and warmth in legs) 3. urinary tract infection (fever higher than 102.5 degrees F, burning upon urination or increased frequency of urination) 4. nerve problems (inability to walk on your toes or heels, numbness, loss of bowel or bladder control) 5. any other symptoms that concern you C. Please call the office at if you have any concerns or questions about your operation or recovery. D. No smoking! Smoking drastically decreases the chance of a solid fusion. E. Do not take any anti-inflammatory medications (Indocin, Advil, Motrin, Aspirin, Naprosyn, etc.) as these may inhibit the chance of a solid fusion. Tylenol is okay to take for pain. MANAGING PAIN AFTER SPINAL SURGERY 1. Narcotic medication is intended for short-term use and will be provided for surgical pain. Surgical pain usually lasts for a period of 4-6 weeks. Narcotic medication includes Percocet, Vicodin, Darvocet, Tylenol #3 or Lortab. 2. Longer-term pain is more appropriately treated with non-narcotic medication such as Tylenol ES. 3. Muscle spasm is not appropriately treated with narcotics. Muscle relaxers such as Soma, Flexeril or Skelaxin can be used along with Tylenol ES. 4. Remember that we all live with some "aches and pains". This is not unusual or uncommon after an injury or as we get older. a. Back pain is expected and may include muscle spasms for 4 to 6 weeks after surgery. The pain should gradually improve. If the pain worsens for no apparent reason, please contact the office. b. Intermittent leg pain may also be experienced and should not be concerned about unless it worsens for no apparent reason. If so, please contact the office. 5. We will provide appropriate medication within the normal guidelines of their prescribed use. We will also be very cautious and aware of potential abuse and extended duration of patients' medication needs. a. Pain medications are for your comfort and to assist with sleep and rest so that the tissue can heal. They are not provided in order to return to normal activity and should not be used through the day. To do so or worsening pain at night can result from ongoing tissue damage and development of tolerance to the prescribed medicine. 6. Please allow 2-3 days to process refills. Prescriptions will not be mailed but must be picked up at the office. FOLLOW UP VISIT: Keep your scheduled follow-up appointment. Any questions, please call the office at . Pending Studies at Discharge: No Stand-Alone Forms: My [employer] PDF, Smoking Cessation Medications and DC Order Prescriptions: New oxycodone 5 mg tablet 5 mg PO Q6H PRN (Reason: pain, severe) Qty: 30 RF: 0 Continued ascorbic acid (vitamin C) [Vitamin C With Tiffany Hips] 1,000 mg Tablet 1 g PO QAM RF: 0 lisinopril-hydrochlorothiazide 20-12.5 mg Tablet 2 tab PO QPM RF: 0 zinc 50 mg Tablet 50 mg PO QAM RF: 0 albuterol sulfate 90 mcg/actuation Hfa Aerosol Inhaler 2 puff INHALATION Q6H PRN (Reason: Wheezing) RF: 0 cholecalciferol (vitamin D3) [Vitamin D3] 50 mcg (2,000 unit) Capsule 50 mcg PO QAM RF: 0 Glucosamine Chondroitin 550-30-1 mg Capsule 1 cap PO QAM RF: 0 Tylenol Headache Otc 1 tab PO DAILY PRN (Reason: Pain) RF: 0 doxycycline monohydrate 100 mg PO BID RF: 0 methylprednisolone 4 mg PO DAILY RF: 0 Discontinued ibuprofen 200 mg Capsule 400 mg PO Q6H PRN (Reason: Pain) RF: 0 Discharge Orders: Discharge Order (Routine); Ordered 08/10/21 Ordered By: Willy Camarillo Admission Data Admit Date/Time: 08/07/21 13:09 Attending Provider: Willy Camarillo Admit Provider: Willy Camarillo Primary Care Provider: Chiquis Eason Other Providers: Phillip Clayton Other Interventions: Discharge Summary Assessment (RN) Last Done: 08/10/21 10:43
== END 2021-08-10 13:21 | disposition home or self-care (01) | DRG 453 ==
LOC: ASU 08:07 → PACUINP 13:09 → SUATTDRO 13:09 → 3E 16:42